=== PATIENT | male | born 1990 | race Caucasian/White ===

== ENCOUNTER 2018-08-11 22:09 | Emergency (ER) | payer SELFPAY ==
[~2018-08-11] VITALS: Ht 175.3 cm; Wt 71.1 kg
[2018-08-11 22:19] VITALS: BP 143/78
--- NOTE | 2018-08-11 22:52 | NUR ---
PT PRESENTED WITH C/O L EAR PAIN/SWELLING, "THERE IS SOMETHING INSIDE OF IT" X THREE DAYS
[2018-08-11] MEDS ORDERED: IBUPROFEN 800 MG TABLET PO ONE (22:59)
[2018-08-11] MEDS ORDERED: IBUPROFEN 200 MG TABLET ONE (23:02)
--- NOTE | 2018-08-11 23:03 | NUR ---
PT MEDICATED PER MAR
[2018-08-11] MEDS ORDERED: FAMOTIDINE 20 MG TABLET ONE (23:26)
[2018-08-11] MEDS ORDERED: FAMOTIDINE 20 MG TABLET PO ONE (23:30)
--- NOTE | 2018-08-11 23:50 | NUR ---
PA AT PT'S BEDSIDE FOR RECHECK
[2018-08-12] MEDS ORDERED: NEO/POLY/HC EAR SUSP 10ML RIGHT EAR SCH
--- NOTE | 2018-08-12 00:05 | NUR ---
ADDITIONAL ORDER RECEIVED. YELLOW SLIP SENT TO PHARMACY FOR MEDICATION.
== END 2018-08-12 00:24 | disposition home or self-care (01) ==
LOC: ED 08-12 00:18
DX: L72.3 Sebaceous cyst (principal); H92.02 Otalgia, left ear
CPT/HCPCS: 10060; 99284; Q0177